=== PATIENT | male | born 1955 | race Hispanic/Latino ===

== ENCOUNTER 2022-01-25 14:12 | Emergency (ER) | payer MEDICARE ==
[~2022-01-25] VITALS: Ht 170.2 cm; Wt 74.8 kg
== END 2022-01-25 16:30 | disposition home or self-care (01) ==
LOC: ER 14:18
DX: M54.41 Lumbago with sciatica, right side (principal); R53.1 Weakness; G89.29 Other chronic pain; I10 Essential (primary) hypertension; Z86.73 Personal history of transient ischemic attack (TIA), and cerebral infarction without residual deficits
CPT/HCPCS: 70450; 72131; 99283